=== PATIENT | male | born 1950 | race Caucasian/White ===

== ENCOUNTER 2022-11-09 06:59 | Day surgery (SDC) | payer MEDICARE ==
[~2022-11-09] VITALS: Ht 175.3 cm; Wt 90.7 kg
[~2022-11-09 06:59] MED LIST: LIPITOR20 M1 PO; LOSARTAN POTASS50 MG PO; TAMSULOSIN HCL0.4 MG PO
[2022-11-09 08:44] VITALS: BP 129/89
== END 2022-11-09 08:54 | disposition home or self-care (01) ==
LOC: ENDO 06:59 → ORM 08:00 → ENDO 08:54
PROVIDERS: ATTEND Surgery
PROC: 0DJD8ZZ Inspection of Lower Intestinal Tract, Via Natural or Artificial Opening Endoscopic (ICD-10-PCS; principal; 2022-11-09)
DX: Z12.11 Encounter for screening for malignant neoplasm of colon (principal); K64.4 Residual hemorrhoidal skin tags; I10 Essential (primary) hypertension; K64.8 Other hemorrhoids